=== PATIENT | female | born 1955 | race Caucasian/White ===

== ENCOUNTER → 2017-10-25 | Outpatient (CLI) | payer BC | END | disposition home or self-care (01) | LOC: LAB 16:00 | DX: N39.0 Urinary tract infection, site not specified (principal) | CPT/HCPCS: 87077; 87086; 87186 ==

== ENCOUNTER → 2018-11-25 | Outpatient (CLI) | payer MEDICARE | END | disposition home or self-care (01) | LOC: LAB 16:36 → LAB SHORT 16:36 | DX: L02.212 Cutaneous abscess of back [any part, except buttock and flank] (principal) | CPT/HCPCS: 87070; 87205 ==

== ENCOUNTER 2022-05-09 02:24 | Day surgery (SDC) | payer MEDICARE, OTHER | END 2022-05-09 22:54 | disposition home or self-care (01) | LOC: WOUND 02:24 | DX: S21.002A Unspecified open wound of left breast, initial encounter (principal); C50.912 Malignant neoplasm of unspecified site of left female breast; C79.9 Secondary malignant neoplasm of unspecified site | CPT/HCPCS: A9270; G0463 ==

== ENCOUNTER 2022-05-23 02:50 | Day surgery (SDC) | payer MEDICARE, OTHER | END 2022-05-23 23:10 | disposition home or self-care (01) | LOC: WOUND 02:50 | DX: S21.002A Unspecified open wound of left breast, initial encounter (principal); C50.912 Malignant neoplasm of unspecified site of left female breast | CPT/HCPCS: G0463 ==

== ENCOUNTER 2022-06-06 03:00 | Day surgery (SDC) | payer MEDICARE, OTHER | END 2022-06-06 23:33 | disposition home or self-care (01) | LOC: WOUND 03:00 | DX: C50.912 Malignant neoplasm of unspecified site of left female breast (principal); S21.002A Unspecified open wound of left breast, initial encounter | CPT/HCPCS: A9270; G0463 ==

== ENCOUNTER 2022-06-20 08:00 | Day surgery (SDC) | payer MEDICARE, OTHER | END 2022-06-20 23:59 | disposition home or self-care (01) | LOC: WOUND 08:00 | DX: C50.912 Malignant neoplasm of unspecified site of left female breast (principal) | CPT/HCPCS: A9270; G0463 ==

== ENCOUNTER 2022-07-11 02:16 | Day surgery (SDC) | payer MEDICARE, OTHER | END 2022-07-11 23:07 | disposition home or self-care (01) | LOC: WOUND 02:16 | DX: S21.002A Unspecified open wound of left breast, initial encounter (principal); C50.912 Malignant neoplasm of unspecified site of left female breast | CPT/HCPCS: A9270; G0463 ==

== ENCOUNTER 2022-07-25 02:08 | Day surgery (SDC) | payer MEDICARE, OTHER | END 2022-07-25 22:46 | disposition home or self-care (01) | LOC: WOUND 02:08 | DX: S21.002A Unspecified open wound of left breast, initial encounter (principal); C50.912 Malignant neoplasm of unspecified site of left female breast | CPT/HCPCS: A9270; G0463 ==

== ENCOUNTER 2022-09-22 09:22 | Day surgery (SDC) | payer MEDICARE, OTHER | END 2022-09-22 23:52 | disposition home or self-care (01) | LOC: WOUND 09:22 | DX: S21.002A Unspecified open wound of left breast, initial encounter (principal); C50.912 Malignant neoplasm of unspecified site of left female breast | CPT/HCPCS: G0463 ==

== ENCOUNTER 2022-10-17 00:57 | Day surgery (SDC) | payer MEDICARE, OTHER | END 2022-10-17 22:45 | disposition home or self-care (01) | LOC: WOUND 00:57 | DX: C50.912 Malignant neoplasm of unspecified site of left female breast (principal); S21.002D Unspecified open wound of left breast, subsequent encounter; X58.XXXD Exposure to other specified factors, subsequent encounter | CPT/HCPCS: A9270; G0463 ==

== ENCOUNTER 2022-11-07 02:29 | Day surgery (SDC) | payer MEDICARE, OTHER | END 2022-11-07 23:07 | disposition home or self-care (01) | LOC: WOUND 02:29 | DX: S21.002D Unspecified open wound of left breast, subsequent encounter (principal); X58.XXXD Exposure to other specified factors, subsequent encounter; C50.912 Malignant neoplasm of unspecified site of left female breast; C79.51 Secondary malignant neoplasm of bone | CPT/HCPCS: A9270; G0463 ==

== ENCOUNTER 2022-12-29 02:40 | Day surgery (SDC) | payer MEDICARE, OTHER | END 2022-12-31 22:56 | disposition home or self-care (01) | LOC: WOUND 02:40 | DX: S21.002D Unspecified open wound of left breast, subsequent encounter (principal); X58.XXXD Exposure to other specified factors, subsequent encounter; C50.912 Malignant neoplasm of unspecified site of left female breast | CPT/HCPCS: G0463 ==

== ENCOUNTER 2023-11-14 02:16 | Day surgery (SDC) | payer MEDICARE, OTHER | END 2023-11-14 23:32 | disposition home or self-care (01) | LOC: WOUND 02:16 | DX: S20.112 Abrasion of breast, left breast (principal); X58.XXXD Exposure to other specified factors, subsequent encounter | CPT/HCPCS: A6213; G0463 ==

== ENCOUNTER 2023-12-03 08:00 | Day surgery (SDC) | payer MEDICARE, OTHER | END 2023-12-03 23:59 | disposition home or self-care (01) | LOC: WOUND 08:00 | DX: S20.112 Abrasion of breast, left breast (principal); X58.XXXD Exposure to other specified factors, subsequent encounter | CPT/HCPCS: G0463 ==

== ENCOUNTER 2023-12-17 04:05 | Day surgery (SDC) | payer MEDICARE, OTHER | END 2023-12-17 22:53 | disposition home or self-care (01) | LOC: WOUND 04:05 | DX: S21.002D Unspecified open wound of left breast, subsequent encounter (principal); X58.XXXD Exposure to other specified factors, subsequent encounter ==

== ENCOUNTER 2024-01-30 04:03 | Day surgery (SDC) | payer MEDICARE, OTHER | END 2024-01-30 22:46 | disposition home or self-care (01) | LOC: WOUND 04:03 | DX: S21.002D Unspecified open wound of left breast, subsequent encounter (principal); X58.XXXD Exposure to other specified factors, subsequent encounter | CPT/HCPCS: G0463 ==

== ENCOUNTER 2024-02-04 02:32 | Day surgery (SDC) | payer MEDICARE, OTHER | END 2024-02-04 23:31 | disposition home or self-care (01) | LOC: WOUND 02:32 | DX: S21.002D Unspecified open wound of left breast, subsequent encounter (principal); X58.XXXD Exposure to other specified factors, subsequent encounter | CPT/HCPCS: G0463 ==

== ENCOUNTER 2024-02-11 02:06 | Day surgery (SDC) | payer MEDICARE, OTHER | END 2024-02-11 04:39 | disposition home or self-care (01) | LOC: WOUND 02:06 | DX: S21.002D Unspecified open wound of left breast, subsequent encounter (principal); C50.912 Malignant neoplasm of unspecified site of left female breast; C79.9 Secondary malignant neoplasm of unspecified site | CPT/HCPCS: G0463 ==

== ENCOUNTER 2024-02-18 03:21 | Day surgery (SDC) | payer MEDICARE, OTHER | END 2024-02-18 23:17 | disposition home or self-care (01) | LOC: WOUND 03:21 | DX: S21.002D Unspecified open wound of left breast, subsequent encounter (principal) | CPT/HCPCS: G0463 ==

== ENCOUNTER 2024-03-25 03:53 | Day surgery (SDC) | payer MEDICARE, OTHER | END 2024-03-25 23:35 | disposition home or self-care (01) | LOC: WOUND 03:53 | DX: S21.002D Unspecified open wound of left breast, subsequent encounter (principal); X58.XXXD Exposure to other specified factors, subsequent encounter | CPT/HCPCS: A6213; G0463 ==

== ENCOUNTER 2024-04-01 02:35 | Day surgery (SDC) | payer MEDICARE, OTHER | END 2024-04-01 22:49 | disposition home or self-care (01) | LOC: WOUND 02:35 | DX: S21.002D Unspecified open wound of left breast, subsequent encounter (principal) | CPT/HCPCS: A6213; G0463 ==

== ENCOUNTER 2024-04-30 04:38 | Day surgery (SDC) | payer MEDICARE, OTHER | END 2024-04-30 23:00 | disposition home or self-care (01) | LOC: WOUND 04:38 | DX: S21.002A Unspecified open wound of left breast, initial encounter (principal); X58.XXXA Exposure to other specified factors, initial encounter | CPT/HCPCS: A6196; A6213; G0463 ==

== ENCOUNTER 2024-05-14 04:43 | Day surgery (SDC) | payer MEDICARE, OTHER ==
[2024-05-14] MEDS ORDERED: Silver Nitr/Potassium Nitrate 1 EA APPL ONE (09:57)
== END 2024-05-14 23:41 | disposition home or self-care (01) ==
LOC: WOUND 04:43
DX: S21.002D Unspecified open wound of left breast, subsequent encounter (principal); X58.XXXD Exposure to other specified factors, subsequent encounter
CPT/HCPCS: 87070; 87075; 87077; 87147; 87186; 87205; A6213; A9270

== ENCOUNTER 2024-05-28 01:17 | Day surgery (SDC) | payer MEDICARE, OTHER ==
[2024-05-28] MEDS ORDERED: Lidocaine HCl 4% Cream 5 GM ONE (09:48)
[2024-05-28] MEDS ORDERED: Silver Nitr/Potassium Nitrate 1 EA APPL ONE (09:48)
== END 2024-05-28 23:16 | disposition home or self-care (01) ==
LOC: WOUND 01:17
DX: S21.002D Unspecified open wound of left breast, subsequent encounter (principal); Z85.3 Personal history of malignant neoplasm of breast
CPT/HCPCS: A6196; A9270

== ENCOUNTER 2024-06-18 03:20 | Day surgery (SDC) | payer MEDICARE, OTHER | END 2024-06-18 23:00 | disposition home or self-care (01) | LOC: WOUND | DX: S21.002A Unspecified open wound of left breast, initial encounter (principal); X58.XXXA Exposure to other specified factors, initial encounter | CPT/HCPCS: G0463 ==

== ENCOUNTER 2024-06-30 02:45 | Day surgery (SDC) | payer MEDICARE, OTHER ==
[2024-06-30] MEDS ORDERED: Silver Nitr/Potassium Nitrate 1 EA APPL ONE ×2 (14:39→14:41)
[2024-06-30] MEDS ORDERED: Lidocaine HCl 4% Cream 5 GM ONE (14:39)
== END 2024-06-30 23:18 | disposition home or self-care (01) ==
LOC: WOUND 02:45
DX: S21.002A Unspecified open wound of left breast, initial encounter (principal); X58.XXXA Exposure to other specified factors, initial encounter
CPT/HCPCS: A9270

== ENCOUNTER 2024-07-09 01:35 | Day surgery (SDC) | payer MEDICARE, OTHER | END 2024-07-09 23:00 | disposition home or self-care (01) | LOC: WOUND 01:35 | DX: C50.912 Malignant neoplasm of unspecified site of left female breast (principal); S21.002A Unspecified open wound of left breast, initial encounter; X58.XXXA Exposure to other specified factors, initial encounter | CPT/HCPCS: G0463 ==

== ENCOUNTER 2024-07-14 04:48 | Day surgery (SDC) | payer MEDICARE, OTHER | END 2024-07-14 23:00 | disposition home or self-care (01) | LOC: WOUND 04:48 | DX: S21.002D Unspecified open wound of left breast, subsequent encounter (principal); Z85.3 Personal history of malignant neoplasm of breast | CPT/HCPCS: G0463 ==

== ENCOUNTER 2024-07-23 05:19 | Day surgery (SDC) | payer MEDICARE, OTHER | END 2024-07-23 23:00 | disposition home or self-care (01) | LOC: WOUND 05:19 | DX: S21.002D Unspecified open wound of left breast, subsequent encounter (principal); Z85.3 Personal history of malignant neoplasm of breast | CPT/HCPCS: G0463 ==

== ENCOUNTER 2024-08-13 00:52 | Day surgery (SDC) | payer MEDICARE, OTHER | END 2024-08-13 23:00 | disposition home or self-care (01) | LOC: WOUND 00:52 | DX: S21.002D Unspecified open wound of left breast, subsequent encounter (principal); X58.XXXD Exposure to other specified factors, subsequent encounter | CPT/HCPCS: A6196; G0463 ==

== ENCOUNTER 2024-09-03 03:05 | Day surgery (SDC) | payer MEDICARE, OTHER | END 2024-09-03 23:00 | disposition home or self-care (01) | LOC: WOUND 03:05 | DX: C50.912 Malignant neoplasm of unspecified site of left female breast (principal); C79.9 Secondary malignant neoplasm of unspecified site | CPT/HCPCS: G0463 ==

== ENCOUNTER 2024-09-17 01:50 | Day surgery (SDC) | payer MEDICARE, OTHER | END 2024-09-17 23:00 | disposition home or self-care (01) | LOC: WOUND 01:50 | DX: C50.912 Malignant neoplasm of unspecified site of left female breast (principal) | CPT/HCPCS: G0463 ==

== ENCOUNTER → 2024-10-01 | Day surgery (SDC) | payer MEDICARE, OTHER | LOC: WOUND 01:30 | DX: S21.002D Unspecified open wound of left breast, subsequent encounter (principal); X58.XXXD Exposure to other specified factors, subsequent encounter; C50.912 Malignant neoplasm of unspecified site of left female breast | CPT/HCPCS: G0463 ==

== ENCOUNTER 2024-10-15 02:36 | Day surgery (SDC) | payer MEDICARE, OTHER ==
[2024-10-15] MEDS ORDERED: Lidocaine HCl 4% Cream 5 GM ONE (09:17)
== END 2024-10-15 23:00 | disposition home or self-care (01) ==
LOC: WOUND 02:36
DX: S21.002D Unspecified open wound of left breast, subsequent encounter (principal); X58.XXXD Exposure to other specified factors, subsequent encounter; C50.912 Malignant neoplasm of unspecified site of left female breast
CPT/HCPCS: A9270; G0463

== ENCOUNTER 2024-10-29 01:40 | Day surgery (SDC) | payer MEDICARE, OTHER | END 2024-10-29 23:00 | disposition home or self-care (01) | LOC: WOUND 01:40 | DX: C50.912 Malignant neoplasm of unspecified site of left female breast (principal) | CPT/HCPCS: G0463 ==

== ENCOUNTER → 2024-11-12 | Day surgery (SDC) | payer MEDICARE, OTHER | LOC: WOUND 03:03 | DX: S21.002D Unspecified open wound of left breast, subsequent encounter (principal); X58.XXXD Exposure to other specified factors, subsequent encounter | CPT/HCPCS: G0463 ==

== ENCOUNTER → 2024-11-26 | Day surgery (SDC) | payer MEDICARE, OTHER | LOC: WOUND 01:09 | DX: T81.31XA Disruption of external operation (surgical) wound, not elsewhere classified, initial encounter (principal); C50.912 Malignant neoplasm of unspecified site of left female breast | CPT/HCPCS: G0463 ==

== ENCOUNTER 2024-12-10 02:18 | Day surgery (SDC) | payer MEDICARE, OTHER | END 2024-12-10 23:00 | disposition home or self-care (01) | LOC: WOUND 02:18 | DX: S21.002A Unspecified open wound of left breast, initial encounter (principal); Z85.3 Personal history of malignant neoplasm of breast | CPT/HCPCS: G0463 ==

== ENCOUNTER 2024-12-24 05:41 | Day surgery (SDC) | payer MEDICARE, OTHER | END 2024-12-24 23:00 | LOC: WOUND 05:41 | DX: T81.31XA Disruption of external operation (surgical) wound, not elsewhere classified, initial encounter (principal); C50.912 Malignant neoplasm of unspecified site of left female breast | CPT/HCPCS: A6196; G0463 ==

== ENCOUNTER 2025-01-07 00:24 | Day surgery (SDC) | payer MEDICARE, OTHER | END 2025-01-07 23:56 | disposition home or self-care (01) | LOC: WOUND 00:24 | DX: S21.002D Unspecified open wound of left breast, subsequent encounter (principal); X58.XXXD Exposure to other specified factors, subsequent encounter | CPT/HCPCS: A6196; G0463 ==

== ENCOUNTER → 2025-01-08 | Outpatient (CLI) | payer MEDICARE, OTHER | LOC: LAB 15:51 → LAB SHORT 15:51 | DX: L08.0 Pyoderma (principal) | CPT/HCPCS: 87070; 87205 ==

== ENCOUNTER 2025-02-04 02:51 | Day surgery (SDC) | payer MEDICARE, OTHER | END 2025-02-04 23:00 | disposition home or self-care (01) | LOC: WOUND 02:51 | DX: S21.002D Unspecified open wound of left breast, subsequent encounter (principal); X58.XXXD Exposure to other specified factors, subsequent encounter; C50.912 Malignant neoplasm of unspecified site of left female breast; Z17.0 Estrogen receptor positive status [ER+] | CPT/HCPCS: 71260; G0463; Q9967 ==